=== PATIENT | male | born 2000 | race Caucasian/White ===

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

== ENCOUNTER 2023-02-07 20:36 | Emergency (ER) | payer MEDICAID ==
[~2023-02-07] VITALS: Ht 162.6 cm; Wt 63.5 kg
[2023-02-07 21:30] VITALS: BP 133/83; PULSE 69; RESP 17; TEMP 98.4; O2SAT 100
--- NOTE | 2023-02-07 21:33 | NUR ---
TO LOBBY A/W BED AMBULATORY
[2023-02-07] MEDS ORDERED: ACET-10509 PO (22:57)
[2023-02-07] MEDS ORDERED: IBUP-2213 PO (22:57)
--- NOTE | 2023-02-07 23:00 | NUR ---
R. KNEE IMMOBIILZER APPLIED, + CMS BEFORE AND AFTER APPLICATION
--- NOTE | 2023-02-07 23:01 | NUR ---
Crutches dispensed. Taught proper use, patient returned demo.
--- NOTE | 2023-02-07 23:04 | NUR ---
Patient discharged with v/s stable. Written and verbal after care instructions given and explained. Patient verbalized understanding. Ambulatory with steady gait. All questions addressed prior to discharge. Advised to follow up with PMD.
== END 2023-02-07 23:04 | disposition home or self-care (01) ==
LOC: MED 20:36
DX: S83.91XA Sprain of unspecified site of right knee, initial encounter (principal); Z79.899 Other long term (current) drug therapy; Z79.1 Long term (current) use of non-steroidal anti-inflammatories (NSAID); Z79.2 Long term (current) use of antibiotics; X50.1XXA Overexertion from prolonged static or awkward postures, initial encounter; Y93.66 Activity, soccer; Y92.322 Soccer field as the place of occurrence of the external cause; Y99.8 Other external cause status
CPT/HCPCS: 29505; 73562; 99283